=== PATIENT | male | born 2000 | race Two or more races ===

== ENCOUNTER 2023-06-12 19:48 | Emergency (ER) | payer OTHER ==
[~2023-06-12] VITALS: Ht 177.8 cm; Wt 54.4 kg
[2023-06-13] MEDS ORDERED: DOLOGESIC 500-1 EACH PO (05:04)
== END 2023-06-13 05:08 ==
LOC: ER 19:48
DX: B34.9 Viral infection, unspecified (principal); Z20.822 Contact with and (suspected) exposure to COVID-19

== ENCOUNTER 2023-08-18 16:35 | Emergency (ER) | payer OTHER ==
[~2023-08-18] VITALS: Ht 180.3 cm; Wt 56.2 kg
[~2023-08-18 16:35] MED LIST: DOLOGESIC 500-1 EACH PO
== END 2023-08-18 18:05 | disposition home or self-care (01) ==
LOC: ER 16:36
DX: M94.0 Chondrocostal junction syndrome [Tietze] (principal); M25.511 Pain in right shoulder

== ENCOUNTER 2025-01-03 02:25 | Emergency (ER) | payer OTHER ==
[~2025-01-03] VITALS: Ht 180.3 cm; Wt 56.7 kg
[2025-01-03] MEDS ORDERED: TETANUS & DIPHTHERIA TOX,ADULT 0.5 ML VIAL IM STA (04:54)
[2025-01-03] MEDS ORDERED: CEFAZOLIN SODIUM 1,000 MG VIAL IM STA (04:55)
[2025-01-03] MEDS ORDERED: CEFAZOLIN SODIUM 1,000 MG VIAL ONE ×2 (05:09→05:11)
[2025-01-03] MEDS ORDERED: DIPHTH,PERTUSS(ACELL),TET VAC 0.5 ML SYRINGE IM ONE (05:10)
== END 2025-01-03 05:28 | disposition home or self-care (01) ==
LOC: ER 02:26
DX: S61.217A Laceration without foreign body of left little finger without damage to nail, initial encounter (principal); W45.8XXA Other foreign body or object entering through skin, initial encounter; Y93.89 Activity, other specified; Y92.89 Other specified places as the place of occurrence of the external cause; Y99.9 Unspecified external cause status